=== PATIENT | male | born 1955 | race Caucasian/White ===

== ENCOUNTER → 2022-12-13 | Outpatient (CLI) | payer MEDICARE ==
--- NOTE | 2022-12-13 09:56 | US ---
EXAMINATION TYPE: US scrotum with doppler. Grayscale and color Doppler Duplex imaging performed of isabella valiente scrotum. DATE OF EXAM: 12/13/2022 COMPARISON: NONE CLINICAL INDICATION: Male, 67 years old with history of N43.3 HYDROCELE, UNSPECIFIED; edema x 1 year EXAM MEASUREMENTS: TESTICLES: Right Testicle: 3.5 x 3.2 x 3.5 cm . Incidental Rete testis seen 1.9 x 1.4 x 1.3 cm soft tissue zully ma noted within scrotal sac. Left Testicle: 4.6 x 2.6 x 3.6 cm . Incidental Rete testis seen 2.0 x 1.4 x 1.3 cm EPIDIDYMIS HEAD: Right Epididymis: 1.2 x .8 x .9 cm Left Epididymis: 1.8 x .9 x 1.3 cm Doppler performed to assess for testicular vascularity; good bilateral color flow and waveforms are s een. There is no evidence of testicular torsion. Presence of hydroceles: yes Presence of varicoceles: no IMPRESSION: 1. No evidence for testicular torsion or intratesticular mass. 2. Small bilateral hydroceles. 3. Soft tissue edema of the scrotal sac.
== END | disposition home or self-care (01) ==
LOC: RADUSWWP 08:49
PROVIDERS: ATTEND Urology
DX: N43.3 Hydrocele, unspecified (principal); R60.0 Localized edema
CPT/HCPCS: 76870; 93975